=== PATIENT | female | born 1995 | race Caucasian/White ===

== ENCOUNTER 2021-05-18 17:24 | Emergency (ER) | payer SELFPAY ==
[~2021-05-18] VITALS: Ht 162.6 cm; Wt 53.1 kg
[~2021-05-18 17:24] MED LIST: NO HOME MEDS; POLY119P2 PO
[2021-05-18 17:40] VITALS: BP 105/64
== END 2021-05-18 22:26 | disposition left against medical advice (07) ==
LOC: ER 17:24
DX: Z76.0 Encounter for issue of repeat prescription (principal); Z53.21 Procedure and treatment not carried out due to patient leaving prior to being seen by health care provider